=== PATIENT | female | born 1955 | race Caucasian/White ===

== ENCOUNTER 2016-07-24 11:48 | Outpatient (CLI) | payer OTHER | END 2016-07-24 11:49 | disposition home or self-care (01) | DX: Z12.31 Encounter for screening mammogram for malignant neoplasm of breast (principal) ==

== ENCOUNTER 2017-08-10 13:44 | Outpatient (CLI) | payer OTHER ==
--- NOTE | 2017-08-13 16:56 | Mammography Report ---
DATE OF SERVICE: 08/10/2017 DIGITAL SCREENING MAMMOGRAM: 08/10/2017 CLINICAL INDICATION: A 61-year-old nulliparous patient, for screening. COMPARISON: 07/2016, 07/2015, 06/2014, 05/2013, 04/2012, 03/2011, 01/2010. TECHNIQUE: Routine CC and MLO projections were obtained of the breasts. FINDINGS: The breasts demonstrate heterogeneously dense fibroglandular parenchyma bilaterally. In the right slightly upper posterior breast, there is a possible developing density, not well seen on the craniocaudal projection. Further evaluation with spot compression views and possible ultrasound is recommended. No mammographically suspicious findings are appreciated in the left breast. IMPRESSION: INCOMPLETE EXAMINATION. RECOMMENDATION: ADDITIONAL EVALUATION OF THE RIGHT BREAST ABOVE. BIRADS CATEGORY 0-INCOMPLETE. STANDARD QUALIFYING STATEMENTS: 1. This examination was reviewed with the aid of Computer-Aided Detection (CAD). 2. A negative or benign imaging report should not delay biopsy if clinically suspicious findings are present. Consider surgical consultation if warranted. More than 5% of cancers are not identified by imaging. 3. Dense breasts may obscure an underlying neoplasm. TD: 08/13/2017 17:51
== END 2017-08-10 13:45 | disposition home or self-care (01) ==
LOC: DI.S 13:44
PROVIDERS: ATTEND Hospitalist
DX: Z12.31 Encounter for screening mammogram for malignant neoplasm of breast (principal); R92.8 Other abnormal and inconclusive findings on diagnostic imaging of breast
CPT/HCPCS: 77067

== ENCOUNTER 2017-08-30 09:40 | Outpatient (CLI) | payer OTHER ==
--- NOTE | 2017-08-30 17:42 | Mammography Report ---
DIGITAL DIAGNOSTIC RIGHT MAMMOGRAM: 08/30/2017 CLINICAL INDICATION: Possible developing density right breast. TECHNIQUE: Right true lateral, MLO, spot compression views. COMPARISON: 08/10/2017, 07/24/2016, 07/26/2015, 06/18/2014, 05/16/2013, 05/15/2012, 04/12/2011, 02/04/2010. FINDINGS: The right breast demonstrates heterogeneously dense fibroglandular parenchyma. The density in question, in the right upper posterior breast, does not persist on additional compression. No underlying mass lesion or architectural distortion is identified. IMPRESSION: NEGATIVE EXAMINATION. RECOMMENDATION: Routine annual screening unless otherwise clinically indicated. BIRADS category: 1, negative. STANDARD QUALIFYING STATEMENTS 1. This examination was reviewed with the aid of Computed-Aided Detection (CAD). 2. A negative or benign imaging report should not delay biopsy if clinically suspicious findings are present. Consider surgical consultation if warranted. More than 5% of cancers are not identified by imaging. 3. Dense breasts may obscure an underlying neoplasm. TD: 08/30/2017 17:42
== END 2017-08-30 09:41 | disposition home or self-care (01) ==
LOC: DI 09:40
PROVIDERS: ATTEND Hospitalist
DX: R92.8 Other abnormal and inconclusive findings on diagnostic imaging of breast (principal)

== ENCOUNTER 2018-11-06 13:16 | Outpatient (CLI) | payer OTHER ==
--- NOTE | 2018-11-07 08:59 | Mammography Report ---
Reason: SCREENING MAMMO Procedure Date: 11/06/2018 Accession Number: [id number] / [id number] Procedure: PANKAJ - Screening Mammo w/[facility] CPT Code: FULL RESULT: EXAM: Screening Mammo w/[facility] DATE: 11/06/2018 1:46 PM CLINICAL HISTORY: Screening encounter. History of nulliparity. TECHNIQUE: (B) - Bilateral CC, laterally exaggerated CC, MLO views were obtained. COMPARISON: 08/30/2017 through 06/18/2014. PARENCHYMAL PATTERN: (A) - The breast(s) demonstrate(s) scattered fibroglandular densities. FINDINGS: There are no suspicious masses, calcifications, or areas of distortion. IMPRESSION: Negative examination. BI-RADS category 1. RECOMMENDATION: (ANNUAL) - Recommend routine annual screening mammography. BI-RADS CATEGORY: (1) - Negative. STANDARD QUALIFYING STATEMENTS: 1. This examination was not reviewed with the aid of Computer-Aided Detection (CAD). 2. A negative or benign imaging report should not preclude biopsy if clinically suspicious findings are present. 3. Dense breasts may obscure an underlying neoplasm. 4. This examination was reviewed with the aid of 3D breast imaging (tomosynthesis).
== END 2018-11-06 13:17 | disposition home or self-care (01) ==
LOC: DI 13:16
DX: Z12.31 Encounter for screening mammogram for malignant neoplasm of breast (principal)
CPT/HCPCS: 77063; 77067

== ENCOUNTER 2018-11-25 07:00 | Day surgery (SDC) | payer OTHER ==
[2018-11-25] MEDS ORDERED: LACTATED RINGERS 1,000 ML IV ONE (07:25)
[2018-11-25] MEDS ORDERED: MIDAZOLAM 2 MG/2 ML VIAL IVP ONE (07:30)
[2018-11-25] MEDS ORDERED: fentaNYL 100 MCG/2 ML VIAL IVP ONE (07:30)
[2018-11-25 09:27] VITALS: BP 117/67
== END 2018-11-25 07:01 | disposition home or self-care (01) ==
LOC: SDS 07:00
PROVIDERS: ATTEND Surgery
PROC: 0DBK8ZZ Excision of Ascending Colon, Via Natural or Artificial Opening Endoscopic (ICD-10-PCS; principal; 2018-11-25 08:45)
DX: Z12.11 Encounter for screening for malignant neoplasm of colon (principal); D12.2 Benign neoplasm of ascending colon; K64.8 Other hemorrhoids; Z87.891 Personal history of nicotine dependence
CPT/HCPCS: 45385; J7120

== ENCOUNTER 2019-12-22 12:53 | Outpatient (CLI) | payer OTHER ==
--- NOTE | 2019-12-23 10:56 | Mammography Report ---
BILATERAL DIGITAL SCREENING MAMMOGRAM 3D/2D: 12/22/2019 CLINICAL: Routine screening. Comparison is made to exams dated: 11/06/2018 mammogram, 08/30/2017 mammogram, 08/10/2017 mammogram, an d 07/24/2016 mammogram - [facility]. There are scattered fibroglandular elements in both breasts. There is possible architectural distortion in the left breast at 12 o'clock middle depth. No other significant masses, calcifications, or other findings are seen in either breast. IMPRESSION: INCOMPLETE: NEEDS ADDITIONAL IMAGING EVALUATION The possible architectural distortion in the left breast is indeterminate. Additional views with pos sible ultrasound are recommended. This exam was interpreted at Station ID: [id number]. NOTE: For mammograms, a report in lay terms will be sent to the patient. Approximately 15% of breast malignancies will not be visualized mammographically. In the management of a palpable breast mass, a negative mammogram must not discourage biopsy of a clinically suspicious lesion. Electronically Signed By: Kimberli Mayorga M.D. lk/:12/22/2019 14:42:43 ACR BI-RADS Category 0: Incomplete 3340F PARENCHYMAL PATTERN: (A) - The breast(s) demonstrate(s) scattered fibroglandular densities. BI-RADS CATEGORY: (0) - 0 Mammo and [place] [id number] Immediate follow-up LATERALITY: (B)
== END 2019-12-22 12:54 | disposition home or self-care (01) ==
LOC: DI 12:53
DX: Z12.31 Encounter for screening mammogram for malignant neoplasm of breast (principal); R92.8 Other abnormal and inconclusive findings on diagnostic imaging of breast
CPT/HCPCS: 77063; 77067

== ENCOUNTER 2020-01-09 14:18 | Outpatient (CLI) | payer OTHER ==
--- NOTE | 2020-01-12 09:29 | Ultrasound Report ---
LIMITED ULTRASOUND OF LEFT BREAST: 01/09/2020 CLINICAL: Routine screening. Patient returns today to evaluate an architectural distortion in the lef t breast. Comparison is made to exam dated: 01/09/2020 mammogram - [facility]. Real-time ultrasound of the left breast was performed. Correa scale images of the real-time examinati on were reviewed. No significant abnormalities were seen sonographically in the left breast. Specifically, no finding to correspond to the patient's mammographic abnormality. There is a small, 3 mm focus of glandular ti ssue in the 12:00 position which may account for the mammographic finding. IMPRESSION: NEGATIVE There is no sonographic evidence of malignancy. Return to annual mammogram screening schedule is recommended. Findings and recommendations were conveyed to the patient at time of exam. This exam was interpreted at Station ID: [id number]. Electronically Signed By: Kiya croft/:01/09/2020 16:01:39 Ultrasound BI-RADS: 1 Negative BI-RADS CATEGORY: (1) - 1 Mammogram [id number] return to screening LATERALITY: (B)
--- NOTE | 2020-01-12 09:29 | Mammography Report ---
UNILATERAL LEFT DIGITAL DIAGNOSTIC MAMMOGRAM 3D/2D: 01/09/2020 CLINICAL: Patient returns today to evaluate an architectural distortion in the left breast. Comparison is made to exams dated: 12/22/2019 mammogram, 11/06/2018 mammogram, 08/30/2017 mammogram, 07/17 mammogram, and 07/24/2016 mammogram - [facility]. There are scattered fibrogl andular elements in left breast. With focal spot compression, and additional views, the asymmetry in the left breast anterior depth in the upper inner quadrant seen on screening mammography resolves. This is most likely overlapping fib roglandular tissue. No significant masses, calcifications, or other findings are seen in the breast. IMPRESSION: INCOMPLETE: NEEDS ADDITIONAL IMAGING EVALUATION Resolution of screening mammography abnormality with additional views. Ultrasound evaluation to confi rm resolution is recommended and was performed immediately following this exam. This exam was interpreted at Station ID: [id number]. NOTE: For mammograms, a report in lay terms will be sent to the patient. Approximately 15% of breast malignancies will not be visualized mammographically. In the management of a palpable breast mass, a negative mammogram must not discourage biopsy of a clinically suspicious lesion. Electronically Signed By: Kiya croft/:01/09/2020 14:58:27 ACR BI-RADS Category 0: Incomplete 3340F PARENCHYMAL PATTERN: (A) - The breast(s) demonstrate(s) scattered fibroglandular densities. BI-RADS CATEGORY: (0) - 0 Ultrasound [id number] Immediate follow-up LATERALITY: (B)
== END 2020-01-09 14:19 | disposition home or self-care (01) ==
LOC: DI 14:18
PROVIDERS: ATTEND Hospitalist
DX: R92.8 Other abnormal and inconclusive findings on diagnostic imaging of breast (principal)
CPT/HCPCS: 76642

== ENCOUNTER 2020-09-14 12:53 | Outpatient (CLI) | payer MEDICARE, OTHER ==
--- NOTE | 2020-09-14 15:14 | DEXA Report ---
PROCEDURE: Dexa Spine and/or Hip INDICATIONS: OSTEOPOROSIS TECHNIQUE: Dual energy x-ray absorptiometry (DXA) was performed on a [employer] System. Regions measur ed are the AP Spine, femoral neck, and if needed forearm. COMPARISON: Prior exam of 08/08/2013 is not directly comparable secondary to different imaging equipme nt. FINDINGS: Lumbar Spine: Bone Mineral Density g/cm/cm,T score 0.927, -2.1, moderate to severe osteopenia 1 Hip: Bone Mineral Density 0.806 g/cm/cm,T score -1.6, moderate osteopenia Left Femoral Neck: Bone Mineral Density 0.814 g/cm/cm, T score -1.6, moderate osteopenia (T score greater or equal to -1.0: NORMAL) (T score from -1.1 to -2.4: OSTEOPENIA) (T score less than or equal to -2.5 to: OSTEOPOROSIS) Impression: 1. Moderate to severe osteopenia within the lumbar spine appearing somewhat improved compared to prio r exam, accounting for differences in imaging equipment. 2. Persistent moderate osteopenia within the left hip and femoral neck. Patients with diagnosis of osteoporosis or osteopenia should have regular bone mineral density assess ment. For those eligible for Medicare, routine testing is allowed once every 2 years. Testing frequ ency can be increased for patients who have rapidly progressing disease or for those who are receivin g medical therapy to restore bone mass. Reviewed by: Joy Armstrong MD on 09/14/2020 3:13 PM PST Approved by: Joy Armstrong MD on 09/14/2020 3:13 PM PST Station ID: [id number]
== END 2020-09-14 12:54 | disposition home or self-care (01) ==
LOC: DI 12:53
PROVIDERS: ATTEND Hospitalist
DX: M85.89 Other specified disorders of bone density and structure, multiple sites (principal)

== ENCOUNTER 2020-12-28 12:15 | Day surgery (SDC) | payer MEDICARE, OTHER ==
[2020-12-28] MEDS ORDERED: fentaNYL 250 MCG/5 ML VIAL ONE (13:52)
[2020-12-28] MEDS ORDERED: MIDAZOLAM 2 MG/2 ML VIAL ONE ×3 (13:52→14:19)
[2020-12-28] MEDS ORDERED: LACTATED RINGERS 400 ML IV ONE (14:30)
[2020-12-28] MEDS ORDERED: ONDANSETRON 4 MG/2 ML VIAL ONE (14:43)
[2020-12-28] MEDS ORDERED: LACTATED RINGERS 1,000 ML IV ONE (15:16)
[2020-12-28] MEDS ORDERED: SCOPOLAMINE PATCH TOP ONE ×2 (15:23→15:24)
[2020-12-28] MEDS ORDERED: METOCLOPRAMIDE 10 MG/2 ML VIAL ONE (15:23)
[2020-12-28 16:01] VITALS: BP 118/64
== END 2020-12-28 12:16 | disposition home or self-care (01) ==
LOC: SDS 12:15
PROVIDERS: ATTEND Surgery
DX: Z12.11 Encounter for screening for malignant neoplasm of colon (principal); K57.30 Diverticulosis of large intestine without perforation or abscess without bleeding; Z86.010 Personal history of colon polyps; K64.8 Other hemorrhoids
CPT/HCPCS: G0105; J2765; J3010; J3490; J7120

== ENCOUNTER 2021-01-04 10:45 | Outpatient (CLI) | payer MEDICARE, OTHER ==
--- NOTE | 2021-01-05 13:24 | Mammography Report ---
BILATERAL DIGITAL SCREENING MAMMOGRAM 3D/2D: 01/04/2021 CLINICAL: Routine screening. Comparison is made to exams dated: 01/09/2020 ultrasound, 01/09/2020 mammogram, 12/22/2019 mammogram, mammogram, 08/30/2017 mammogram, and 08/10/2017 mammogram - [facility]. Ther e are scattered fibroglandular elements in both breasts. No significant masses, calcifications, or other findings are seen in either breast. There has been no significant interval change. IMPRESSION: NEGATIVE There is no mammographic evidence of malignancy. A 1 year screening mammogram is recommended. This exam was interpreted at Station ID: [id number]. NOTE: For mammograms, a report in lay terms will be sent to the patient. Approximately 15% of breast malignancies will not be visualized mammographically. In the management of a palpable breast mass, a negative mammogram must not discourage biopsy of a clinically suspicious lesion. Electronically Signed By: Kiya croft/sakina:01/04/2021 11:51:24 ACR BI-RADS Category 1: Negative 3341F PARENCHYMAL PATTERN: (A) - The breast(s) demonstrate(s) scattered fibroglandular densities. BI-RADS CATEGORY: (1) - 1 RECOMMENDATION: (ANNUAL) - Recommend routine annual screening mammography. [id number] 1 year screening LATERALITY: (B)
== END 2021-01-04 10:46 | disposition home or self-care (01) ==
LOC: DI 10:45
DX: Z12.31 Encounter for screening mammogram for malignant neoplasm of breast (principal)

== ENCOUNTER 2022-02-06 10:44 | Outpatient (CLI) | payer MEDICARE, OTHER ==
--- NOTE | 2022-02-07 08:47 | Mammography Report ---
BILATERAL DIGITAL SCREENING MAMMOGRAM 3D/2D: 02/06/2022 CLINICAL: Routine screening. Family history of breast cancer. Comparison is made to exams dated: 01/04/2021 mammogram, 12/22/2019 mammogram, 11/06/2018 mammogram, 07/17 mammogram, and 06/18/2014 mammogram - [facility]. There are scattered fibrog landular elements in both breasts. No significant masses, calcifications, or other findings are seen in either breast. There has been no significant interval change. IMPRESSION: NEGATIVE There is no mammographic evidence of malignancy. A 1 year screening mammogram is recommended. Based on the Tyrer Cuzick model (a risk assessment model) the patients lifetime risk is 8.6% and her 10 year risk is 4.8%. According to the ACR, ACS, and NCCN guidelines, an annual breast MRI exam amado g with mammogram is recommended if the patients lifetime risk is 20% or greater. This exam was interpreted at Station ID: [id number]. NOTE: For mammograms, a report in lay terms will be sent to the patient. Approximately 15% of breast malignancies will not be visualized mammographically. In the management of a palpable breast mass, a negative mammogram must not discourage biopsy of a clinically suspicious lesion. Electronically Signed By: Yovanny hein/sakina:02/06/2022 13:03:59 ACR BI-RADS Category 1: Negative 3341F PARENCHYMAL PATTERN: (A) - The breast(s) demonstrate(s) scattered fibroglandular densities. BI-RADS CATEGORY: (1) - 1 RECOMMENDATION: (ANNUAL) - Recommend routine annual screening mammography. [id number] 1 year screening LATERALITY: (B)
== END 2022-02-06 10:45 | disposition home or self-care (01) ==
LOC: DI.S 10:44
DX: Z12.31 Encounter for screening mammogram for malignant neoplasm of breast (principal); Z80.3 Family history of malignant neoplasm of breast